=== PATIENT | male | born 1950 | race Caucasian/White ===

== ENCOUNTER 2019-08-06 17:44 | Emergency (ER) | payer OTHER ==
[~2019-08-06] VITALS: Ht 175.3 cm; Wt 81.8 kg
[~2019-08-06 17:44] MED LIST: AMLO-150 PO; ASPI-430 PO; BABY ASPIRIN PO; BISA-49 PO; DIAZ5TAB PO; DOCU100C33 PO; DUCOSATE SODIUM PO; EZET10TA70 PO; FENO48TA16 PO; FISH1CAP PO; FURO-92 PO; FURO40TA6 PO; HYDR-3237 PO; HYDR-3246 PO; HYDR2TAB29 PO; HYDR4TAB48 PO; LIDO700A5 TD; LOSA1TAB25 PO; LOSA50TA2 PO; MAGN300C PO; MAGN400O7 PO; METH4TAB6 PO; METH750T2 PO; MORP-52 PO; MULT-516 PO; OXYC5TAB3 PO; PANT40TA3 PO; POLY17PO5 PO; POTA500G12 PO; SENN1TAB27 PO; TIZA4CAP PO; TIZA4TAB2 PO; WARF10TA43 PO-COUM; [UNRECOGNIZED DRUG - OTHER] PO
--- NOTE | 2019-08-06 18:45 | NUR ---
PT ASSISTED AT BEDSIDE WITH URINAL. PT URINATED ON FLOOR AND CLOTHING. PT CLEANED WITH SOAP AND WATER. JEANS REMOVED.
--- NOTE | 2019-08-06 19:06 | NUR ---
PT EDUCATED ON USE OF CALL LIGHT FOR ASSISTANCE TO GET OUT OF BED. PT VERBALIZES UNDERSTANDING.
--- NOTE | 2019-08-06 19:26 | NUR ---
PT TO CT
[2019-08-06 19:37] LABS: BASOPHILS # (AUTO) 0.11 x10^3/uL (0-0.1); BASOPHILS % (AUTO) 1 % (0-1); EOSINOPHILS # (AUTO) 0.57 x10^3/uL (0-0.4); EOSINOPHILS % (AUTO) 5 % (1-7); LYMPHOCYTES # (AUTO) 3.55 x10^3/uL (1-3.4); LYMPHOCYTES % (AUTO) 32 % (22-44); MD NO; MEAN CORPUSCULAR HEMOGLOBIN 35.1 pg (27.5-34.5); MEAN CORPUSCULAR HGB CONC 33.7 g/dL (33.2-36.2); MEAN CORPUSCULAR VOLUME 104.3 fL (81-97); MEAN PLATELET VOLUME 8.7 fL (7.4-10.4); MONOCYTES # (AUTO) 0.64 x10^3/uL (0.2-0.8); MONOCYTES % (AUTO) 6 % (2-9); NEUTROPHILS # (AUTO) 6.26 x10^3/uL (1.8-6.8); NEUTROPHILS % (AUTO) 56 % (42-75); PLATELET COUNT 238 x10^3/uL (130-400); RED BLOOD COUNT 4.58 x10^6/uL (4.38-5.82); RED CELL DISTRIBUTION WIDTH 12.8 % (9.4-14.8)
[2019-08-06 19:46] LABS: ALANINE AMINOTRANSFERASE 40 U/L (12-78); ALBUMIN 4.1 g/dL (3.4-5.0); ANION GAP 11 mmol/L (5-15); CALCIUM 10.3 mg/dL (8.5-10.1); CHLORIDE 111 mmol/L (98-107); CREATININE 1.19 mg/dL (0.7-1.3)
[2019-08-06 19:50] LABS: ALKALINE PHOSPHATASE 38 U/L (45-117); BILIRUBIN,TOTAL 0.2 mg/dL (0.2-1.0); TROPONIN I < 0.015 ng/mL (0.000-0.045)
[2019-08-06 20:58] VITALS: BP 110/75
== END 2019-08-06 21:01 | disposition home or self-care (01) ==
LOC: ED 20:55
DX: F10.229 Alcohol dependence with intoxication, unspecified (principal); R41.0 Disorientation, unspecified; R94.31 Abnormal electrocardiogram [ECG] [EKG]; I11.0 Hypertensive heart disease with heart failure; I50.9 Heart failure, unspecified; I25.2 Old myocardial infarction; Y90.0 Blood alcohol level of less than 20 mg/100 ml
CPT/HCPCS: 36415; 70450; 80053; 80307; 84484; 85025; 93005; 99285